=== PATIENT | female | born 1990 | race Caucasian/White ===

== ENCOUNTER 2020-06-13 19:31 | Emergency (ER) | payer OTHER ==
[2020-06-13 19:44] VITALS: TEMP 98.3; BMI 32.8
[2020-06-13 21:04] LABS: BASO % 0.7 % (0-2.0); EOS % 1.9 % (0-4.5); HEMATOCRIT 40.8 % (32.4-45.2); HEMOGLOBIN 14.2 GM/dL (10.7-15.3); LYMPH % 35.5 % (8-40); MCH 31.4 pg (25.7-33.7); MCHC 34.9 g/dl (32.0-36.0); MEAN CELL VOLUME 90.1 fl (80-96); MEAN PLT VOLUME 8.9 fl (7.5-11.1); MONO % 12.6 % (3.8-10.2); NEUT % 49.3 % (42.8-82.8); PLATELET COUNT 231 K/MM3 (134-434); RBC 4.53 M/mm3 (3.60-5.2); WHITE BLOOD COUNT 4.7 K/mm3 (4.0-10.0)
[2020-06-13 21:29] LABS: ALBUMIN 4.2 g/dl (3.4-5.0); BLOOD UREA NITROGEN 11.5 mg/dL (7-18); CALCIUM 8.5 mg/dL (8.5-10.1)
[2020-06-13 21:32] LABS: CREATININE 0.6 mg/dL (0.55-1.3)
[2020-06-13 21:34] LABS: BILIRUBIN,TOTAL 0.3 mg/dL (0.2-1); TOT PROT 7.6 g/dl (6.4-8.2)
[2020-06-13 22:06] VITALS: BP 138/86; PULSE 89
== END 2020-06-13 22:54 | disposition home or self-care (01) ==
LOC: JER 19:31
DX: O26.899 Other specified pregnancy related conditions, unspecified trimester (principal); R10.9 Unspecified abdominal pain; Z3A.01 Less than 8 weeks gestation of pregnancy
CPT/HCPCS: 36415; 76817-TC; 80053; 84702; 85025; 86850; 86900; 86901; 87491; 87591; 99284-25

== ENCOUNTER 2020-06-15 08:15 | Emergency (ER) | payer OTHER ==
[2020-06-15 08:23] VITALS: BMI 32.8
[2020-06-15 11:00] VITALS: BP 135/89; PULSE 92; TEMP 98.9
== END 2020-06-15 10:35 ==
LOC: JER 08:15
DX: O20.0 Threatened abortion (principal); O02.81 Inappropriate change in quantitative human chorionic gonadotropin (hCG) in early pregnancy; O00.01 Abdominal pregnancy with intrauterine pregnancy; Z3A.01 Less than 8 weeks gestation of pregnancy
CPT/HCPCS: 36415; 76817-TC; 84702; 99284-25

== ENCOUNTER 2020-06-22 09:00 | Emergency (ER) | payer OTHER ==
[2020-06-22] MEDS ORDERED: ONDANSETRON 4 MG/2 ML VIAL ONE (09:06)
[2020-06-22] MEDS ORDERED: ONDANSETRON *ODT* 4 MG TABLET ONE (09:06)
[2020-06-22 09:57] VITALS: BP 138/94; PULSE 91; TEMP 98.9; BMI 32.8
[2020-06-22 10:46] LABS: URINE APPEARANCE CLEAR; URINE BILIRUBIN NEGATIVE (NEGATIVE); URINE COLOR YELLOW; URINE GLUCOSE (UA) NEGATIVE (NEGATIVE); URINE KETONE TRACE (NEGATIVE); URINE LEUK ESTERASE NEGATIVE (NEGATIVE); URINE NITRITE NEGATIVE (NEGATIVE); URINE PROTEIN NEGATIVE (NEGATIVE)
== END 2020-06-22 11:39 | disposition home or self-care (01) ==
LOC: JER 09:00
DX: R10.84 Generalized abdominal pain (principal)
CPT/HCPCS: 76830-TC; 81003; 87086; 99284-25

== ENCOUNTER 2020-08-11 10:28 | Emergency (ER) | payer OTHER ==
[2020-08-11 10:35] VITALS: BMI 31.8
[2020-08-11 11:46] LABS: BASO % 0.5 % (0-2.0); HEMOGLOBIN 13.8 GM/dL (10.7-15.3); LYMPH % 23.1 % (8-40); MCH 30.9 pg (25.7-33.7); MCHC 34.5 g/dl (32.0-36.0); MEAN CELL VOLUME 89.4 fl (80-96); MEAN PLT VOLUME 8.9 fl (7.5-11.1); MONO % 11.4 % (3.8-10.2); PLATELET COUNT 192 10^3/uL (134-434); RBC 4.47 M/mm3 (3.60-5.2); RDW 13.4 % (11.6-15.6); WHITE BLOOD COUNT 5.1 K/mm3 (4.0-10.0)
[2020-08-11 11:48] LABS: PH,URINE 6.5 (5.0-8.0); URINE APPEARANCE Clear; URINE BILIRUBIN Negative (NEGATIVE); URINE COLOR Yellow; URINE GLUCOSE (UA) Negative (NEGATIVE); URINE KETONE Negative (NEGATIVE); URINE LEUK ESTERASE Negative (NEGATIVE); URINE NITRITE Negative (NEGATIVE); URINE PROTEIN Negative (NEGATIVE); URINE UROBILINOGEN 0.2 mg/dL (0.2-1.0)
[2020-08-11 11:51] LABS: INR 1.06 (0.83-1.09); PROTHROMBIN TIME (PATIENT) 12.8 SEC (9.7-13.0)
[2020-08-11 11:54] LABS: ACTIVATED PTT 25.5 SECONDS (25.2-36.5)
[2020-08-11 12:04] LABS: CHLORIDE 107 mmol/L (98-107); SODIUM 138 mmol/L (136-145)
[2020-08-11 12:06] LABS: ANION GAP 6 MMOL/L (8-16); BLOOD UREA NITROGEN 7.9 mg/dL (7-18); CALCIUM 8.8 mg/dL (8.5-10.1); CO2 25 mmol/L (21-32); GLUCOSE,RANDOM 85 mg/dL (74-106)
[2020-08-11 12:07] LABS: ALBUMIN 3.5 g/dl (3.4-5.0)
[2020-08-11 12:09] LABS: SGOT/AST 25 U/L (15-37); SGPT/ALT 22 U/L (13-61)
[2020-08-11 12:10] LABS: CREATININE 0.4 mg/dL (0.55-1.3)
[2020-08-11 12:11] LABS: BILIRUBIN,TOTAL 0.3 mg/dL (0.2-1)
[2020-08-11 12:12] LABS: ALK PHOS 37 U/L (45-117)
[2020-08-11 14:29] VITALS: BP 122/78; PULSE 96; TEMP 98.5
[2020-08-12 11:07] LABS: SARS-CoV-2 NAA Not Detected (Not Detected)
== END 2020-08-11 14:47 | disposition home or self-care (01) ==
LOC: JER 10:28
DX: O99.512 Diseases of the respiratory system complicating pregnancy, second trimester (principal); R06.02 Shortness of breath; Z3A.14 14 weeks gestation of pregnancy
CPT/HCPCS: 36415; 71045-TC-FY; 80053; 81003; 83880; 84484; 85025; 85610; 85730; 93005; 93010; 99284-25; C9803; U0003; U0005

== ENCOUNTER 2020-09-30 15:58 | Emergency (ER) | payer OTHER ==
[2020-09-30 16:07] VITALS: BP 140/88; PULSE 78; TEMP 97.8; BMI 32.9
== END 2020-09-30 17:51 | disposition home or self-care (01) ==
LOC: JER 15:58 → JERFT 15:58
DX: O9A.212 Injury, poisoning and certain other consequences of external causes complicating pregnancy, second trimester (principal); S33.5XXA Sprain of ligaments of lumbar spine, initial encounter; V49.40XA Driver injured in collision with unspecified motor vehicles in traffic accident, initial encounter; Z3A.21 21 weeks gestation of pregnancy
CPT/HCPCS: 99283-25

== ENCOUNTER 2021-02-05 08:05 | Inpatient (IN) | payer OTHER ==
[2021-02-05] MEDS ORDERED: CITRIC ACID/SODIUM CITRATE 30 ML UNIT-DOSE CUP PO ONE ×2 (08:30→09:49)
[2021-02-05] MEDS ORDERED: ELECTROLYTE-148 SOLN 500 ML IV ONE (08:30)
[2021-02-05] MEDS ORDERED: morphine SULFATE/PF 1 MG/2 ML (2cc Syringe - QUVA) EP ONE (08:35)
[2021-02-05] MEDS ORDERED: ACETAMINOPHEN 325 MG TABLET (FP) PO PRN (08:35)
[2021-02-05] MEDS ORDERED: IBUPROFEN 600 MG TABLET (FP) PO PRN (08:35)
[2021-02-05] MEDS ORDERED: ONDANSETRON 4 MG/2 ML VIAL IVPUSH PRN (08:35)
[2021-02-05] MEDS ORDERED: ELECTROLYTE-148 SOLN 1,000 ML IV SCH (08:45)
[2021-02-05] MEDS ORDERED: PHENYLEPHRINE HCL 10 MG/1 ML SINGLE DOSE VIAL ONE (08:51)
[2021-02-05] MEDS ORDERED: ePHEDrine SULFATE 50 MG/1 ML AMPULE ONE (08:55)
[2021-02-05] MEDS ORDERED: SUCCINYLCHOLINE CHLORIDE 200 MG/10 ML SYRINGE ONE (08:55)
[2021-02-05] MEDS ORDERED: SODIUM CHLORIDE 0.9% P/F 10 ML VIAL IJ ONE ×2 (08:56→09:51)
[2021-02-05] MEDS ORDERED: ceFAZolin SODIUM 1 GM VIAL ONE (08:59)
[2021-02-05 09:15] VITALS: BMI 32.9
[2021-02-05] MEDS ORDERED: morphine SULFATE/PF 1 MG/2 ML (2cc Syringe - QUVA) ONE (09:50)
[2021-02-05] MEDS ORDERED: OXYTOCIN 10 UNITS/ML VIAL ONE ×2 (10:21→10:35)
[2021-02-05] MEDS ORDERED: ONDANSETRON 4 MG/2 ML VIAL ONE ×2 (10:35→13:35)
[2021-02-05] MEDS ORDERED: KETOROLAC TROMETHAMINE 30 MG/1 ML VIAL ONE (10:35)
[2021-02-05] MEDS ORDERED: DEXAMETHASONE SOD PHOSPHATE 4 MG/1 ML VIAL ONE (10:35)
[2021-02-05] MEDS ORDERED: MIDAZOLAM HCL 2 MG/2 ML SINGLE DOSE VIAL ONE (10:45)
[2021-02-05] MEDS ORDERED: oxyCODONE HCL 5 MG TABLET PO PRN (11:23)
[2021-02-05] MEDS ORDERED: IBUPROFEN 800 MG/8 ML IJ IVPB PRN (11:23)
[2021-02-05] MEDS ORDERED: ACETAMINOPHEN 1000 MG/100 ML BAG IVPB PRN (11:23)
[2021-02-05] MEDS ORDERED: SENNOSIDES/DOCUSATE COMBO (SENNA PLUS) TABLET (UD) PO PRN (11:23)
[2021-02-05] MEDS ORDERED: ONDANSETRON 4 MG/2 ML VIAL IVPB PRN (11:23)
[2021-02-05] MEDS ORDERED: OXYTOCIN 20 UNITS in 0.9% NS 20 UNIT/1,000 ML INFUS.BAG IV SCH (11:30)
[2021-02-05] MEDS ORDERED: LABETALOL HCL 100 MG TABLET (FP) PO ONE (18:17)
[2021-02-06 08:53] LABS: BASO % 0.4 % (0-2.0); EOS % 0.2 % (0-4.5); HEMATOCRIT 33.9 % (32.4-45.2); HEMOGLOBIN 11.9 GM/dL (10.7-15.3); LYMPH % 14.1 % (8-40); MCH 32.5 pg (25.7-33.7); MEAN PLT VOLUME 9.1 fl (7.5-11.1); MONO % 9.7 % (3.8-10.2); NEUT % 75.6 % (42.8-82.8); PLATELET COUNT 148 10^3/uL (134-434); RBC 3.65 M/mm3 (3.60-5.2); WHITE BLOOD COUNT 10.4 K/mm3 (4.0-10.0)
[2021-02-06] MEDS: IBUPROFEN 600 MG TABLET (FP) PO PRN ×3 (09:31→18:38)
[2021-02-06] MEDS: PRENATAL VITAMINS W/ FOLIC ACID TABLET (FP) PO SCH (09:32)
[2021-02-06] MEDS: SIMETHICONE 80 MG TAB.CHEW (FP) PO PRN ×3 (09:32→18:38)
[2021-02-06] MEDS ORDERED: BISACODYL 10 MG SUPP.RECT RC PRN (11:23)
[2021-02-06] MEDS ORDERED: ACETAMINOPHEN 325 MG TABLET (FP) PO PRN (11:30)
[2021-02-07] MEDS: IBUPROFEN 600 MG TABLET (FP) PO PRN ×2 (04:11→10:03)
[2021-02-07] MEDS: SIMETHICONE 80 MG TAB.CHEW (FP) PO PRN (04:12)
[2021-02-07] MEDS: PRENATAL VITAMINS W/ FOLIC ACID TABLET (FP) PO SCH (10:03)
[2021-02-07 11:01] VITALS: BP 145/98; PULSE 96; TEMP 97.9
== END 2021-02-07 14:15 | disposition home or self-care (01) | DRG 371 ==
LOC: JLDR 08:05 → J3W 14:00
PROVIDERS: ADMIT Specialist; ATTEND Specialist
PROC: 10D00Z1 Extraction of Products of Conception, Low, Open Approach (ICD-10-PCS; principal; 2021-02-05)
DX: O48.0 Post-term pregnancy (principal); O32.2XX0 Maternal care for transverse and oblique lie, not applicable or unspecified; Z3A.40 40 weeks gestation of pregnancy; Z37.0 Single live birth
CPT/HCPCS: 36415; 85025; 88307-TC; J0131